=== PATIENT | male | born 1950 | race Caucasian/White ===

== ENCOUNTER → 2018-10-17 | Outpatient (CLI) | payer MEDICARE ==
--- NOTE | 2018-10-17 14:23 | Diagnostic Imaging Report ---
INDICATION: Lump and pain in the left retroareolar region. TECHNIQUE: Sonographic interrogation of the retroareolar left breast was performed. FINDINGS: There is heterogeneity in the retroareolar left breast region corresponding with the mammographic findings. This is most suggestive of gynecomastia. A discrete mass is not seen. No fluid collection is identified. IMPRESSION: The findings are most suggestive of gynecomastia. No discrete mass is detected. ACR BI-RADS Category 2: Benign findings. Dictated by: Dictated on workstation # [id number]
--- NOTE | 2018-10-17 14:27 | Diagnostic Imaging Report ---
INDICATION: Left nipple pain. COMPARISON: No prior studies are available for comparison. TECHNIQUE: 2D and 3D diagnostic mammography was obtained of the left breast. In addition, a right MLO view was performed for comparison purposes. FINDINGS: There is mild flame-shaped fibroglandular density in the retroareolar left breast, suggestive of gynecomastia. No discrete mass is seen. No suspicious microcalcifications are identified. The axillae are unremarkable. IMPRESSION: The findings are most suggestive of gynecomastia in the retroareolar left breast. Even so, sonographic interrogation of this area is recommended and will be performed today. ACR BI-RADS Category 0: Incomplete. (Needs additional imaging evaluation). Result letter will be mailed to the patient. Note: At least 10% of breast cancer is not imaged by mammography. Dictated by: Dictated on workstation # [id number]
== END ==
LOC: RAD 09:35
PROVIDERS: ATTEND Nurse Practitioner Family
DX: N63.20 Unspecified lump in the left breast, unspecified quadrant (principal)
CPT/HCPCS: 76642

== ENCOUNTER → 2020-11-25 | Outpatient (CLI) | payer MEDICARE ==
[~2020-11-25] MED LIST: CATHETER FLUSH 10 ML SYR IV PRN; HOLD METFORMIN - RECEIVED CONTRAST 20 ML VIAL IV SCH; IOHEXOL 350 MG/ML 100 ML (OMNIPAQUE 350) VIAL IV ONE; NS 100 ML (IVPB) BAG IV ONE
--- NOTE | 2020-11-25 14:25 | Diagnostic Imaging Report ---
PROCEDURE: CT chest with contrast only. TECHNIQUE: Multiple contiguous axial images were obtained through the chest after administration of intravenous contrast. Auto Exposure Controls were utilized during the CT exam to meet ALARA standards for radiation dose reduction. DATE: November 25, 2020. COMPARISON: None. INDICATION: 70-year-old male, provided history of recurrent pneumonia not improving with medications. FINDINGS: There is extensive airspace consolidation in the right upper lobe involving the majority of the right upper lobe. This abnormal consolidation is extending directly into the right hilar region. There is mass effect and distortion of right upper lobe pulmonary artery vessels. There is a nodular low-attenuation masslike area in the right hilum measuring approximately 4.5 x 2.8 cm in size on axial image 71. There is also a right hilar lymph node on axial image 99 measuring 12 mm in short axis. There is a low-attenuation subcarinal lymph node measuring 1.7 cm in short axis. There is a left paratracheal lymph node on axial image 62 measuring 11 mm in short axis. There is a right lower lobe pulmonary nodule on axial image 112 which measures 7 mm in size. There is a calcified left upper lobe granuloma on axial image 38 measuring 6 mm in size. There are mild linear opacities in the lingula most consistent with mild scarring and/or atelectasis. There are noncalcified left lower lobe pulmonary nodules on axial image 106 measuring up to maximally 6 mm in size. There is an additional 6 mm left lower lobe pulmonary nodule on axial image 82. There is a right middle lobe pulmonary nodule on axial image 67 measuring 10 mm in size. There are upper lobe predominant findings of emphysema. There is opacification of right upper lobe bronchi. There is no pneumothorax. There is a small right pleural effusion. There is no identified central pulmonary embolus. The heart is not enlarged. There is no pericardial effusion. There is no identified abnormally enlarged axillary or subcarinal lymph node. There is a peripherally enhancing lesion in the right lobe of the liver on axial image 164 measuring up to 2.0 cm in size in a similar-appearing lesion in the left lobe of liver measuring 1.4 cm in size on axial image 165. There are several additional low-attenuation lesions in the right lobe of the liver on axial images 176 and 178 which are not able to be definitively classified. The largest of these measures 1.4 cm in size as measured on axial image 174. There are also additional low-attenuation lesions in the liver such as in the right lobe of liver on axial image 127 measuring 10 mm in size, left lobe of the liver with peripheral enhancement on axial image 135 measuring 11 mm in size, left lobe of the liver on axial image 146 measuring 9 mm in size, and left lobe of liver on axial image 170 measuring 11 mm in size. There is a jojo hepatis lymph node on axial image 166 measuring 1.6 cm in short axis. There is a low-attenuation lesion in the region of the pancreatic head measuring 1.1 cm in size on axial image 170. There is no gross dilation of the main pancreatic duct. There is no biliary ductal dilation. There are atherosclerotic calcifications present and incompletely imaged infrarenal abdominal aortic aneurysm measuring up to at least 3.6 x 3.2 cm in diameter. There is cortical irregularity of the proximal humerus on the right on axial image 8 measuring up to approximately 1.5 cm in length on axial image 8. There is a lucent lesion with peripheral sclerosis in the T8 vertebral body measuring 10 mm in size and sagittal image 94. There is a lytic lesion of the left scapula on axial image 71 measuring 9 mm in size. IMPRESSION: CT CHEST. 1. Extensive airspace consolidation in the right upper lobe highly concerning for malignancy. Other alveolar consolidative processes would be in the differential diagnosis. Sampling for definitive diagnosis is needed. 2. Large low-attenuation right hilar mass which may relate to extension of the above-mentioned malignancy and/or metastatic grace disease. There are abnormally enlarged subcarinal and left paratracheal lymph nodes most consistent with metastatic grace disease. 3. 10 mm right middle lobe pulmonary nodule and a subcentimeter pulmonary nodules in the right lower lobe and left lower lobe which are indeterminate. 4. Small right pleural effusion. 5. Multiple low-attenuation liver lesions raising concern for metastatic disease to the liver although are indeterminate. 6. Low-attenuation lesion in the pancreatic head measuring 1.1 cm in size which could relate to a primary pancreatic neoplasm. No gross dilation of the main pancreatic duct. 7. Abnormally enlarged jojo hepatis lymph nodes concerning for metastatic grace disease. 8. Lytic lesion in the left inferior scapula highly likely to relate to a bone metastasis. Additional cortical irregularity of the lateral aspect of the proximal right humerus highly suspicious for bone metastasis. The T8 vertebral body lesion is also concerning for sites of bone metastasis. 9. Incompletely imaged infrarenal abdominal aortic aneurysm. Dictated by: Dictated on workstation # [id number]
== END ==
LOC: RAD FS 12:32
PROVIDERS: ATTEND Family Medicine
DX: J18.1 Lobar pneumonia, unspecified organism (principal); J90 Pleural effusion, not elsewhere classified; K76.9 Liver disease, unspecified; K86.9 Disease of pancreas, unspecified; I71.4 Abdominal aortic aneurysm, without rupture; M75.90 Shoulder lesion, unspecified, unspecified shoulder
CPT/HCPCS: 71260